=== PATIENT | female | born 1945 ===

== ENCOUNTER 2025-08-21 12:58 | Emergency (ER) | payer MEDICARE, SELFPAY ==
--- NOTE | ~2025-08-21 | XR_ITS ---
EXAMINATION: XR CHEST 2 VIEWS HISTORY: cough COMPARISON: There are no prior studies available for comparison. FINDINGS: AP and lateral views of the chest are submitted. The examination is limited by lordotic positioning. The lungs are grossly clear. There is no pleural effusion, pneumothorax, or pulmonary vascular congestion. The heart appears enlarged. There is degenerative disc disease of the spine. XR/XR chest 2V IMPRESSION: Cardiomegaly. The lungs are grossly clear. Electronically signed by: Sarath Haynes MD 08/22/2025 08:06 AM [place]
[2025-08-21 13:06] VITALS: BP 155/117; PULSE 84; O2SAT 97
--- NOTE | 2025-08-21 13:10 | ECG_ITS ---
Test Reason : CP Blood Pressure : */* mmHG Vent. Rate : 67 BPM Atrial Rate : 67 BPM P-R Int : 192 ms QRS Dur : 156 ms QT Int : 440 ms P-R-T Axes : 27 -14 18 degrees QTcB Int : 464 ms Sinus rhythm with marked sinus arrhythmia Right bundle branch block Minimal voltage criteria for LVH, may be normal variant ( R in aVL ) Abnormal ECG No previous ECGs available Referred By: Generic ED Physician Electronically Signed By: ROBY LAIRD MD
[2025-08-21 13:21] VITALS: BP 123/52; PULSE 70; RESP 18; TEMP 36.6; O2SAT 99; BMI 31.4
--- NOTE | 2025-08-21 13:50 | ED.GENADULT ---
HPI - General Adult General Chief complaint: General Medical Stated complaint: sob, Rt chest pain x days per ems Time Seen by Provider: 08/21/25 13:50 Source: patient and EMS Mode of arrival: EMS Limitations: no limitations History of Present Illness ED Provider: HPI narrative: 79-year-old woman reports history of? 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 Uses Dilaudid for pain, has a history of anemia sounds like also history of CHF and potentially not taking her furosemide, patient did not have her prescriptions with her. Related Data Previous Rx's ?Medication ?Instructions ?Recorded furosemide 40 mg tablet (Lasix) 40 mg PO DAILY 30 days #30 tabs 08/21/25 Allergies Allergy/AdvReac Type Severity Reaction Status Date / Time Penicillins (PCN) Allergy Unknown Verified 08/21/25 13:22 Review of Systems Constitutional: Constitutional: Reports as per HPI [facility] Social History Social History Advance Directives: No Advance Directives Information Provided: Yes Physical Exam ED Exam Exam: ?General: ??looks age appropriate ?PERRLA, EOMI, MMM, Neck: Supple, no LAD ?CV: RRR, no obvious murmurs appreciated ?Resp: ?No wheezing rales rhonchi no stridor moving air well Abd: ?Bowel sounds are present, no tenderness no rebound no rigidity MSK: Reports pain with range of motion of the bilateral hips states this is chronic, no lower extremity edema Skin: No bruising, no jaundice ?Neuro: ?Alert and oriented x3, moving upper and lower extremities symmetrically, no obvious facial asymmetry noted, cranial nerves 2-12 intact Vital Signs: Vital Signs - 24 hr 08/21/25 13:21 Temperature 97.9 F Pulse Rate 70 Respiratory Rate 18 Blood Pressure 123/52 L Pulse Oximetry 99 Oxygen Delivery Method Room Air BMI result Body Mass Index 31.4 Medical Decision Making Medical Decision Making MDM Narrative: 2:03 PM 08/21/2025 (Dr. Hans Lane): Presenting with dyspnea, palpitations, likely chest pain as well, going on sounds like sensate o'clock in the morning but has had respiratory symptoms for the past 3 days, no hypoxic tachycardic or PE risk factors elicited otherwise consideration for workup as below 2:41 PM 08/21/2025 (Dr. Hans Lane): I spoke with the patient's family, her son is at bedside with his partner, patient's BNP is elevated to 1600, chest x-ray still pending, viral swab negative, borderline elevation in troponin we will obtain a 2 hour repeat Differential Diagnosis Differential Diagnoses: The differential diagnosis associated with the presentation includes (CHF, COPD exacerbation, pneumonia, pneumothorax, ACS, PE,) Admission/Observation Consideration of admission/observation: Escalation of care including admission/observation considered Lab Data MDM Lab Attestation statement: I reviewed the patient's lab results. 08/21/25 13:52 08/21/25 13:51 Labs: Lab Results 08/21/25 08/21/25 08/21/25 Range/Units 13:47 13:51 13:52 WBC 5.9 (4.8-10.8) X10*3/uL RBC 3.06 L (4.20-5.50) X10*6/uL Hgb 9.2 L (12.0-16.0) g/dl Hct 28.6 L (37.0-47.0) % MCV 93.5 (80.0-98.0) fL MCH 30.1 (27.0-33.0) pg MCHC 32.2 (31.0-35.0) g/dl RDW 13.6 (11.0-16.0) % Plt Count 284 (160-400) X10*3/uL MPV 9.2 L (9.4-12.3) fL Immature Gran % (Auto) 0.7 H (0.0-0.4) % Neut % (Auto) 70.9 (45-73) % Lymph % (Auto) 14.5 L (20-40) % [place] % (Auto) 6.6 (2-11) % Eos % (Auto) 6.1 H (0-4) % Baso % (Auto) 1.2 (0-2) % Lymph # (Auto) 0.9 L (1.2-4.9) X10*3/uL [place] # (Auto) 0.4 (0.1-1.2) X10*3/uL Eos # (Auto) 0.4 (0.0-0.4) X10*3/uL Baso # (Auto) 0.1 (0.0-0.2) X10*3/uL Abs Immat Gran (auto) 0.04 H (0.00-0.03) X10*3/uL Absolute Neuts (auto) 4.2 (2.0-8.3) x10*3/uL Absolute Nucleated RBC 0.000 (0.0-0.012) X10*3/uL Nucleated RBC % (auto) 0.0 (0.0-0.2) /100WBC Sodium 139 (135-145) mmol/L Potassium 4.4 (3.3-5.1) mmol/L Chloride 108 (96-108) mmol/L Carbon Dioxide 24 (22-29) mmol/L Anion Gap 11 L (12-20) BUN 20 H (9-16) mg/dL Creatinine 1.05 (0.5-1.4) mg/dL Estim Creat Clear Calc 43.8 Estimated GFR 50 Random Glucose 129 H (60-115) mg/dL Calcium 10.0 (8.4-10.2) mg/dL Total Bilirubin 0.6 (0.0-1.0) mg/dL AST 17 (5-31) U/L ALT 6 (0-31) U/L Alkaline Phosphatase 208 H (39-117) U/L Troponin I High Sens 15.9 (<3.5-17.0) ng/L NT-Pro-B Natriuret Pep 1592.7 H (<300) pg/mL Total Protein 6.6 (6.5-8.0) g/dL Albumin 3.7 (3.5-5.0) g/dL Influenza Type A (PCR) NEGATIVE (Negative) Influenza Type B (PCR) NEGATIVE (Negative) RSV RNA Qual (PCR) NEGATIVE (Negative) SARS-CoV-2 RNA (RT-PCR) NEGATIVE (Negative) 08/21/25 Range/Units 16:01 WBC (4.8-10.8) X10*3/uL RBC (4.20-5.50) X10*6/uL Hgb (12.0-16.0) g/dl Hct (37.0-47.0) % MCV (80.0-98.0) fL MCH (27.0-33.0) pg MCHC (31.0-35.0) g/dl RDW (11.0-16.0) % Plt Count (160-400) X10*3/uL MPV (9.4-12.3) fL Immature Gran % (Auto) (0.0-0.4) % Neut % (Auto) (45-73) % Lymph % (Auto) (20-40) % [place] % (Auto) (2-11) % Eos % (Auto) (0-4) % Baso % (Auto) (0-2) % Lymph # (Auto) (1.2-4.9) X10*3/uL [place] # (Auto) (0.1-1.2) X10*3/uL Eos # (Auto) (0.0-0.4) X10*3/uL Baso # (Auto) (0.0-0.2) X10*3/uL Abs Immat Gran (auto) (0.00-0.03) X10*3/uL Absolute Neuts (auto) (2.0-8.3) x10*3/uL Absolute Nucleated RBC (0.0-0.012) X10*3/uL Nucleated RBC % (auto) (0.0-0.2) /100WBC Sodium (135-145) mmol/L Potassium (3.3-5.1) mmol/L Chloride (96-108) mmol/L Carbon Dioxide (22-29) mmol/L Anion Gap (12-20) BUN (9-16) mg/dL Creatinine (0.5-1.4) mg/dL Estim Creat Clear Calc Estimated GFR Random Glucose (60-115) mg/dL Calcium (8.4-10.2) mg/dL Total Bilirubin (0.0-1.0) mg/dL AST (5-31) U/L ALT (0-31) U/L Alkaline Phosphatase (39-117) U/L Troponin I High Sens 18.1 H (<3.5-17.0) ng/L NT-Pro-B Natriuret Pep (<300) pg/mL Total Protein (6.5-8.0) g/dL Albumin (3.5-5.0) g/dL Influenza Type A (PCR) (Negative) Influenza Type B (PCR) (Negative) RSV RNA Qual (PCR) (Negative) SARS-CoV-2 RNA (RT-PCR) (Negative) Independent Interpretation I performed an independent interpretation of an: EKG (67 beats per minute, no QTC prolongation, does have right bundle-branch block pathology, no prior to compare, T-wave inversions in V1 V2 as well as V4 V5 likely from the bundle-branch, ST segment not elevated) Discharge Plan Discharge Clinical Impression: CHF exacerbation, Dyspnea Additional Instructions: Workup has been consistent with degree of heart failure, I recommend starting furosemide 40 mg daily, this is a diuretic, you can take it during the day because if you take it before bedtime you will be running to the bathroom quite a bit I recommend starting with 40 mg a day for the next 5 days and then 40 mg every other day It is very important that she is re-evaluated by her PCP The rest of her workup has been reassuring Prescriptions: New furosemide [Lasix] 40 mg tablet 40 mg PO DAILY 30 Days Qty: 30 0RF Print Language: Pashto
[2025-08-21 13:58] LABS: MANUAL DIFF FLAG NO
[2025-08-21 14:02] LABS: Hematocrit 28.6 % (37.0-47.0); Hemoglobin 9.2 g/dl (12.0-16.0); Imm Gran Abs Auto 0.04 X10*3/uL (0.00-0.03); Imm Gran Pct Auto 0.7 % (0.0-0.4); Lymphocytes Absolute Auto 0.9 X10*3/uL (1.2-4.9); Mean Corpuscular HGB Conc 32.2 g/dl (31.0-35.0); Mean Corpuscular Hemoglobin 30.1 pg (27.0-33.0); Mean Corpuscular Volume 93.5 fL (80.0-98.0); NRBC Abs Auto 0.000 X10*3/uL (0.0-0.012); NRBC Pct Auto 0.0 /100WBC (0.0-0.2); Platelet Count 284 X10*3/uL (160-400); Red Blood Count 3.06 X10*6/uL (4.20-5.50); White Blood Count 5.9 X10*3/uL (4.8-10.8)
[2025-08-21 14:16] LABS: Alanine Aminotransferase 6 U/L (0-31); Albumin Level 3.7 g/dL (3.5-5.0); Alkaline Phosphatase 208 U/L (39-117); Anion Gap 11 (12-20); Aspartate Amino Transferase 17 U/L (5-31); Blood Urea Nitrogen 20 mg/dL (9-16); Calcium 10.0 mg/dL (8.4-10.2); Carbon Dioxide 24 mmol/L (22-29); Chloride 108 mmol/L (96-108); Creatinine Clr Calc Pharmacy 43.8; Estimated Glomerular Filt Rate 50; Potassium 4.4 mmol/L (3.3-5.1); Sodium 139 mmol/L (135-145); Total Protein 6.6 g/dL (6.5-8.0)
[2025-08-21 14:26] LABS: Troponin-I High Sensitivity 15.9 ng/L (<3.5-17.0)
[2025-08-21 14:36] LABS: Resp Syncy Virus RNA Qual PCR NEGATIVE (Negative); SARS COV2 PCR INHOUSE NEGATIVE (Negative)
--- OUTSIDE RECORDS SUMMARY | 2025-08-21 15:21 | XMS_ITS | Encounter Summary ---
Author Organization [facility] Address [address] [place] [address] Phone Care Team Providers Care Azure Architect Name Role Phone Jess Richter BRENNA Primary Care Provider Riri Lucas PA-C Unavailable Encounter Details Date Type Department Care Team (Late st Contact Info) Description 01/08/2023 Ancillary Orders [address] [address] Ermelinda Rinaldi MD [address] [place] [address] Orthopedics & Sports Medicine, [place], [place] [phone] [email or web address] Hip pain, chronic, left Social History Tobacco Use Types Packs/Day Years Used Date Smoking Tobacco: Every Day Cigarettes 1 51 Started: 1976 Smokeless Tobacco: Never Alcohol Use Standard Drinks/Week Comments Not Currently 0 (1 standard drink = 0.6 oz pur e alcohol) Education Answer Date Recorded Are you interested in more education? Not on rick e 12/24/2022 Are you concerned about learning? Not on file 12/24/2022 No 12/24/2022 No 12/24/2022 Comments Unknown Sex and Gender Information Value Date Recorded Sex Assigned at Female 07/18/2024 2:23 PM EST Legal Sex Female 2:39 PM EDT Gender Identity Female 07/18/2024 2:23 PM EST Sexual Orientation Straight 07/18/2024 2: 23 PM EST documented as of this encounter Plan of Treatment Pending Results Name Type Priority Associated Diagnoses Date /Time FL Guidance Needle Placement Non-Spine Imaging Routine Hip pain, chronic, left 01/12/2023 10:08 AM EDT Scheduled Orders Name Type Priority Associated Diagnoses Orde r Schedule FL Guidance Needle Placement Non-Spine Imaging Routine Hip pain, chronic, left 1 Occurrences starting 01/08/2023 until 04/10/2023 documented as of this encounter Visit Diagnoses Diagnosis Hip pain, chronic, left documented in this encounter Care Teams Azure Architect Relationship Specialty Start Date End Date Jess Richter CNP 14 [facility] [address] [place] [id number] PCP - General Internal Medicine 04/24/20 Riri Lucas PA-C [address] [place] [phone] [email or web address] Physician Radial Drill Press Operator 10/17/24 documented as of this encounter Additional Source Comments The information contained in this document represents components of the legal health record. It is not the complete legal health record.[facility]
--- OUTSIDE RECORDS SUMMARY | 2025-08-21 15:21 | XMS_ITS | Encounter Summary ---
Author Organization [facility] Address [address] [place] [address] [place] [address] Phone Care Team Providers Care Hydroelectric Plant Structural Engineer Name Role Phone Jess Richter BRENNA Primary Care Provider Riri Lucas PA-C Unavailable [phone] Encounter Details Date Type Department Care Team (Late st Contact Info) Description 01/04/2023 Ancillary Orders [facility] [address] [place] [address] Ermelinda Rinaldi MD [address] [place] [address] Orthopedics & Sports Medicine, [place], [place] [phone] [email or web address] Social History Tobacco Use Types Packs/Day Years [...] as of this encounter Plan of Treatment Not on file documented as of this encounter Visit Diagnoses Not on filedocumented in this encounter Care Teams Hydroelectric Plant Structural Engineer Relationship Specialty Start Date End Date Jess Richter CNP [address] [place] [address] [address] [place] [address] PCP - General Internal Medicine 04/24/20 Riri Lucas PA-C [address] [place] [address] Physician Vocal Teacher 10/17/24 documented as of this encounter Additional Source Comments The information contained in this document represents components of the legal health record. It is not the complete legal health record.[facility]
--- OUTSIDE RECORDS SUMMARY | 2025-08-21 15:21 | XMS_ITS | Encounter Summary ---
Author Organization [facility] Address [address] [place] [address] [place] [address] Phone Care Team Providers Care Booking Officer Name Role Phone Jess Richter BRENNA Primary Care Provider Riri Lucas PA-C Unavailable [phone] Encounter Details Date Type Department Care Team (Late st Contact Info) Description 01/08/[address] [facility] [address] [place] [address] Ermelinda Rinaldi MD [address] [place] [address] Orthopedics & Sports Medicine, [place], [place] [phone] [email or web address] Social History Tobacco Use Types Packs/Day Years [...] on filedocumented in this encounter Care Teams Booking Officer Relationship Specialty Start Date End Date Jess Richter CNP [address] [place] [address] [address] [place] [address] PCP - General Internal Medicine 04/24/20 Riri Lucas PA-C [address] [place] [address] Physician Food Products Sales Representative 10/17/24 documented as of this encounter Additional Source Comments The information contained in this document represents components of the legal health record. It is not the complete legal health record.[facility]
--- OUTSIDE RECORDS SUMMARY | 2025-08-21 15:22 | XMS_ITS | Encounter Summary ---
Author Organization [facility] Address [address] [place] [address] Phone Care Team Providers Care Belt Dresser Name Role Phone Jess Richter BRENNA Primary Care Provider Riri Lucas PA-C Unavailable [phone] Reason for Referral * Consultation (Within 2 weeks) - Closed Specialty Diagnoses / Procedures Referred By Desean de los santos Referred To Contact Riri Lucas PA-C [address] [place] [address] Phone: tel: fax: [email or web address] [address] [address] Phone: tel: Referral ID Status Reason Start Date Expiration Date Visits Re quested Visits Authorized [id number] Closed 07/17/2025 07/17/2026 1 1 Encounter Details Date Type Department Care Team (Late st Contact Info) Description 07/17/[address] [facility] [place] [facility] [address] [place] [address] Riri Lucas PA-C [address] [place] [address] Low vitamin B12 level (Primary Dx); Anemia, unspecified type Social History Tobacco Use Types Packs/Day Years Used Date Smoking Tobacco: Former Cigarettes 1 51 S tarted: 1977 Smokeless Tobacco: Never Alcohol Use Standard Drinks/Week Comments Not Currently 0 (1 standard drink = 0.6 oz pur e alcohol) Home Health Assessment: Transportation Answer Date Recorded Lack of Transportation (Medical) No 09/07/2024 Lack of Transportation (Non-Medical) No 09/07/2024 Patient Unable or Declines to Respond No 09/07/2024 Education Answer Date Recorded Are you interested in more education? Not on rick e 12/24/2022 Are you concerned about learning? Not on file 12/24/2022 No 12/24/2022 No 12/24/2022 Digital Access Answer Date Recorded No 01/19/2023 No 01/19/2023 Reliable internet access at home? Not on file 01/19/2023 Device with a working camera? Not on file Intimate Partner Violence Answer Date R ecorded Denied Basic Needs Not on file 08/17/2023 In the past 12 months have y ou been in a relationship with a person who hurts, threatens, or tries to control you? No 08/17/2023 Worried food would run out Not on file 08/17 In the past 12 months have y ou been in a relationship with a person who hurts, threatens, or tries to control you? No 08/17/2023 Comments Unknown Sex and Gender Information Value Date Recorded Sex Assigned at Female 07/18/2024 2:23 PM EST Legal Sex Female 2:39 PM EDT Gender Identity Female 07/18/2024 2:23 PM EST Sexual Orientation Straight 07/18/2024 2: 23 PM EST documented as of this encounter Plan of Treatment Scheduled Orders Name Type Priority Associated Diagnoses Orde r Schedule CBC and Differential Lab Routine Low vitamin B12 level Anemia, unspecified type Monthly for 4 Occurrences starting 07/17/2025 until 07/17/2026 Iron and Total Iron Binding Capacity (Iron/TIBC) Lab Routine Low vitamin B12 level Anemia, unspecified type Monthly for 4 Occurrences starting 07/17/2025 until 07/17/2026 Ferritin Lab Routine Low vitamin B12 level Anemia, unspecified type Monthly for 4 Occurrences starting 07/17/2025 until 07/17/2026 Vitamin B12 Lab Routine Low vitamin B12 level Expected: 10/17/2025 (Approximate), Expires: 01/15/2026 Scheduled Referrals Name Type Priority Associated Diagnoses Order Schedule Ambulatory referral to [facility] Outpatient Outpatient Referral Routine Ordered: 07/17/2025 documented as of this encounter Visit Diagnoses Diagnosis Low vitamin B12 level- Primary Anemia, unspecified type documented in this encounter Additional Health Concerns Assessment Noted Time PHQ-9 Depression Total Score: 4 12/14/19 24 11:34 AM EDT PHQ-2 Depression Total Score: 0 12/14/19 24 11:34 AM EDT documented as of this encounter Care Teams Belt Dresser Relationship Specialty Start Date End Date Jess Richter CNP [address] [place] [address] [place] [address] PCP - General Internal Medicine 04/24/20 Riri Lucas PA-C [address] [place] [phone] [email or web address] Physician Commercial Loan Analyst 10/17/24 documented as of this encounter Additional Source Comments The information contained in this document represents components of the legal health record. It is not the complete legal health record.[facility]
--- OUTSIDE RECORDS SUMMARY | 2025-08-21 15:22 | XMS_ITS | Encounter Summary ---
Author Organization [facility] Address [address] [place] [address] [place] [address] Phone Care Team Providers Care Impregnator And Drier Name Role Phone Jess Richter BRENNA Primary Care Provider Riri Lucas PA-C Unavailable [phone] Encounter Details Date Type Department Care Team (Late st Contact Info) Description 08/02/2024 Procedure Pass OR Admitting Dept - Virtual Department [address] [place] [address] Social History Tobacco Use Types Packs/Day Years Used Date Smoking Tobacco: Former Cigarettes 1 51 S tarted: 1977 Smokeless Tobacco: Never Alcohol Use Standard Drinks/Week Comments Not Currently 0 (1 standard drink = 0.6 oz pur e alcohol) Home Health Assessment: Transportation Answer Date Recorded Lack of Transportation (Medical) No 07/13/2024 Lack of Transportation (Non-Medical) No 07/13/2024 Patient Unable or Declines to Respond No 07/13/2024 Education Answer Date Recorded Are you interested [...] Diagnoses Not on filedocumented in this encounter Additional Health Concerns Assessment Noted Time PHQ-9 Depression Total Score: 4 12/14/19 24 11:34 AM EDT PHQ-2 Depression Total Score: 0 12/14/19 24 11:34 AM EDT documented as of this encounter Care Teams Impregnator And Drier Relationship Specialty Start Date End Date Jess Richter CNP [address] [place] [address] [address] [place] [address] PCP - General Internal Medicine 04/24/20 Riri Lucas PA-C [address] [place] [address] Physician Media Marketing Director 10/17/24 documented as of this encounter Additional Source Comments The information contained in this document represents components of the legal health record. It is not the complete legal health record.[facility]
--- OUTSIDE RECORDS SUMMARY | 2025-08-21 15:22 | XMS_ITS | Encounter Summary ---
Author Organization [facility] Address [address] [place] [address] [place] [address] Phone Care Team Providers Care Shrimp Trawler Captain Name Role Phone Jess Richter BRENNA Primary Care Provider Riri Lucas PA-C Unavailable [phone] Encounter Details Date Type Department Care Team (Late st Contact Info) Description 06/03/2023 Ancillary Orders [facility] [address] [place] [address] Ermelinda Rinaldi MD [address] [place] [address] Orthopedics & Sports Medicine, [place], [place] [phone] [email or web address] Social History Tobacco Use Types Packs/Day Years [...] with a working camera? Not on file Comments Unknown Sex and Gender Information Value [...] on filedocumented in this encounter Care Teams Shrimp Trawler Captain Relationship Specialty Start Date End Date Jess Richter CNP [address] [place] [address] [email or web address] PCP - General Internal Medicine 04/24/20 Riri Lucas PA-C [address] [place] [address] Physician Profile Grinder Technician 10/17/24 documented as of this encounter Additional Source Comments The information contained in this document represents components of the legal health record. It is not the complete legal health record.[facility]
--- OUTSIDE RECORDS SUMMARY | 2025-08-21 15:22 | XMS_ITS | Encounter Summary ---
Author Organization [facility] Address [address] [place] [address] Phone Care Team Providers Care Director Of Photography Name Role Phone Jess Richter BRENNA Primary Care Provider Riri Lucas PA-C Unavailable [phone] Encounter Details Date Type Department Care Team (Late st Contact Info) Description 06/03/2023 Ancillary Orders [address] [address] Ermelinda Rinaldi MD [address] [place] [address] Orthopedics & Sports Medicine, [place], [place] [phone] [email or web address] Hip pain, chronic, right Social History Tobacco Use Types Packs/Day Years [...] encounter Visit Diagnoses Diagnosis Hip pain, chronic, right documented in this encounter Care Teams Director Of Photography Relationship Specialty Start Date End Date Jess Richter CNP [address] [place] [address] [address] [place] [address] PCP - General Internal Medicine 04/24/20 Riri Lucas PA-C [address] [place] [address] Physician Ocean Lifeguard 10/17/24 documented as of this encounter Additional Source Comments The information contained in this document represents components of the legal health record. It is not the complete legal health record.[facility]
--- OUTSIDE RECORDS SUMMARY | 2025-08-21 15:22 | XMS_ITS | Clinical Summary ---
Author Organization [facility] Address [address] [place] [id number] Phone Care Team Providers Care Mounter Hand Name Role Phone Jess Richter BRENNA Primary Care Provider Riri Lucas PA-C Unavailable [phone] Allergies Active Allergy Reactions Criticality Noted Date Comments Cefuroxime Axetil 05/28/2020 Morphine Shortness Of Breath High 09/08/2024 Nsaids (Non-Steroidal Anti-Inflammatory Drug) 05/28/2020 Penicillins 05/28/2020 Medications blood-glucose meter kitIndications:T ype 2 diabetes mellitus with hyperglycemia, without long-term current use of insulin Use as instructed 1 each 020 Active LORazepam (ATIVAN) 0.5 MG tabletIndication s:Anxiety state [The details of the medication are not available because there are pending changes by a home health clinician.] 15 tablet 023 Active Additional Information Patient not taking.Reported on 07/22/2024 ipratropium-albu teroL (COMBIVENT RESPIMAT) 20-100 mcg/actuation MistIndications: Chronic obstructive pulmonary disease, unspecified COPD type [The details of the medication are not available because there are pending changes by a home health clinician.] 12 g 1 023 Active Additional Information Patient taking differently:1 puff Inhalation Every 4 hours PRN,sob/wheezing, 07/21-has not needed, Reported on 07/21/2024 fluticasone-umec lidin-vilanter (TRELEGY ELLIPTA) 200-62.5-25 mcg inhalerIndicatio ns:Chronic obstructive pulmonary disease, unspecified COPD type Inhale 1 puff into the lungs daily. 180 each 023 Active cholecalciferol (VITAMIN D3) 5,000 unit capsuleIndicatio ns:Vitamin D deficiency Take 1 capsule (5,000 Units total) by mouth daily. 90 capsule 2 024 Active Additional Information Patient not taking.Reported on 07/14/2024 furosemide (LASIX) 40 MG tabletIndication s:Bilateral leg edema [The details of the medication are not available because there are pending changes by a home health clinician.] 3 tablet 024 Active Additional Information Patient not taking.Reported on 08/01/2024 omeprazole (PRILOSEC) 40 MG capsule Take 40 mg by mouth daily. 024 Active senna 8.6 mg tablet Take 1 tablet by mouth daily. 024 Active magnesium hydroxide 400 mg/5 mL Susp Take 30 mL by mouth daily as needed (constipation). 025 Active gabapentin (NEURONTIN) 100 MG capsuleIndicatio ns:Primary localized osteoarthritis of hip,Other closed fracture of right ischium with routine healing, subsequent encounter Take 1-2 capsules (100-200 mg total) by mouth 3 (three) times a day for 10 days. 60 capsule 025 Active atorvastatin (LIPITOR) 80 MG tabletIndication s:Mixed hyperlipidemia TAKE 1 TABLET BY MOUTH EVERY DAY 90 tablet 2 025 Active metFORMIN (GLUCOPHAGE-XR) 500 MG 24 hr tabletIndication s:Type 2 diabetes mellitus with hyperglycemia, without long-term current use of insulin TAKE 2 TABLETS BY MOUTH DAILY WITH DINNER 180 tablet 2 Active venlafaxine (EFFEXOR-XR) 150 MG 24 hr capsuleIndicatio ns:Current moderate episode of major depressive disorder without prior episode Take 1 capsule (150 mg total) by mouth daily. 90 capsule 3 025 Active cyanocobalamin, vitamin B-12, 1000 MCG tablet TAKE 1 TABLET BY MOUTH EVERY DAY 90 tablet 1 025 Active cyanocobalamin (VITAMIN B-12) 1,000 mcg/mL injection Inject 1 mL (1,000 mcg total) into the muscle every 30 (thirty) days. 3 mL 025 2025 Active syringe with needle 1 mL 25 gauge x 5/8 Syrg Use to inject b12 into the skin as instructed 6 each 2 Active predniSONE (DELTASONE) 1 MG tabletIndication s:History of polymyalgia rheumatica TAKE 2 TABLETS BY MOUTH DAILY WITH BREAKFAST 60 tablet 2 025 Active levothyroxine (SYNTHROID, LEVOTHROID) 125 MCG tabletIndication s:Hypothyroidism TAKE 1 TABLET BY MOUTH EVERY DAY IN THE MORNING 90 tablet 3 025 Active HYDROmorphone (DILAUDID) 8 MG tabletIndication s:Chronic pain syndrome,Primary localized osteoarthritis of hip Take 1 tablet (8 mg total) by mouth every 4 (four) hours as needed for pain (specific location in comments). pain to pelvic/hip/knees 168 tablet 025 2025 Active cyanocobalamin (VITAMIN B-12) 1,000 mcg/mL injection INJECT 1 ML SUBCUTANEOUSLY ONCE A WEEK FOR 3 WEEKS THEN CONTINUE ONCE A MONTH 18 mL 1 025 Active levothyroxine (SYNTHROID, LEVOTHROID) 125 MCG tabletIndication s:Hypothyroidism TAKE 1 TABLET BY MOUTH EVERY DAY IN THE MORNING 90 tablet 1 025 2024 Discontinued predniSONE (DELTASONE) 1 MG tabletIndication s:History of polymyalgia rheumatica TAKE 2 TABLETS (2 MG TOTAL) BY MOUTH DAILY WITH BREAKFAST 60 tablet 2 025 2024 Discontinued HYDROmorphone (DILAUDID) 8 MG tabletIndication s:Chronic pain syndrome,Primary localized osteoarthritis of hip Take 1 tablet (8 mg total) by mouth every 4 (four) hours as needed for pain (specific location in comments). pain to pelvic/hip/knees 168 tablet 025 2024 Discontinued(R eomansier) cyanocobalamin (VITAMIN B-12) 1,000 mcg/mL injection Inject under the skin as instructed weekly x3, then continue monthly 6 mL 1 025 2024 Discontinued Active Problems Problem Noted Date Diagnosed Date Low vitamin B12 level 07/17/2025 Chronic pain syndrome 10/04/2024 Assessment & Plan (10/04/2024 7:04 PM EST): Patient struggling with some pretty significant chronic pain, particularly related to bilateral hips, with right being worse than the left. She had been very helpful of an upcoming total hip replacement, but this is on hold until her anemia is appropriately worked up and improved. Continue Dilaudid, gabapentin. Will add on Effexor XR, which can have some benefit on chronic pain. Patient in agreement with plan. History of polymyalgia rheumatica 10/04/2024 Assessment & Plan (10/04/2024 7:04 PM EST): Continue prednisone 2 mg daily. Iron deficiency anemia 10/04/2024 Assessment & Plan (11/07/2024 11:27 AM EDT): Patient struggling with an iron deficiency anemia, for which she has a follow-up appointment with hematology at the end of next month. She was recommended to start iron supplements, although it does not sound that she has done this. Will call in prescription for ferrous sulfate 325 mg 3 times weekly. Will update patient's blood work, may consider referral for iron infusion based on results. Patient in agreement with plan. Assessment & Plan (10/04/2024 7:06 PM EST): Patient has a history of mild anemia, which worsened after her pelvic fracture in May. It was trending up, but has since dropped with an H&H of 7.7/26.7. Patient was encouraged to start iron supplements, but she does not believe that she has yet started this and will discuss with her daughter. Patient encouraged to reach out to hematology to set up an appointment and complete FIT testing as recommended. Patient verbalizes understanding. Closed fracture of right ischium with routine he aling 07/14/2024 Assessment & Plan (07/22/2024 7:30 AM EST): Patient continues to struggle with high levels of pain involving her chronic right hip arthritis and right ischium fracture. This is compounded by difficulty getting her prescription due to national shortages of hydromorphone. Reassured patient that we found a supply at [facility] and she can have a family member picker tender helper her prescription later today. Recommended that she supplement her hydromorphone with acetaminophen 1000 mg three times daily. Would recommend avoiding NSAIDs due to her prednisone use and risk of GI bleeding. Advised her to call next week to let us know how she is doing, could consider adding TCA at bedtime or neuromodulator for better pain control. Patient verbalizes understanding and in agreement with plan. Assessment & Plan (07/14/2024 6:37 PM EST): Patient doing fairly well, working with home PT. Patient is having fairly high levels of pain. Will refill hydromorphone but approve one additional pill per day, so she can take it closer to every 3 hours. F/u in 1 week for reevaluation. Patient verbalizes understanding and in agreement with plan. Other constipation 07/14/2024 Assessment & Plan (07/14/2024 6:38 PM EST): Likely combination of inactivity and pain medication. Recommended starting Colace twice daily; if not improved, add in Senna twice daily as well. Milk of magnesia every 3rd day if no BM. F/u as needed. Primary localized osteoarthritis of hip 03/31/20 Assessment & Plan (11/07/2024 11:28 AM EDT): Patient is quite disappointed that her hip surgery was delayed due to initially a pelvic fracture and then her anemia. Patient is struggling with pretty significant hip pain; she does find hydromorphone to be helpful but is not lasting the full 6 hours. Will increase frequency of hydromorphone to every 4 hours and follow-up in 1 month for reevaluation. Patient in agreement with plan. Assessment & Plan (07/14/2024 6:35 PM EST): Patient is planning on having right total hip replacement next month, but this was cancelled by her orthopedic office likely due to her recent pelvic fracture. Patient is very eager to get this surgery done; will reach out to Dr. Weston's office to discuss timing of scheduling the surgery. Encounter for annual wellness exam in Medicare p atient 08/17/2023 Assessment & Plan (08/17/2023 12:30 PM EST): Generally well elderly female, with chronic conditions as discussed below. We discussed screening recommendations, such as colonoscopy due to family history of colon cancer; patient verbalizes understanding of risk and benefits, but declines any further colonoscopies. She also declines bone density testing, mammograms, and most immunizations. Influenza vaccine given in office today. Recommend healthy eating and regular exercise as tolerated. Current moderate episode of major depressive disorder without prior episode 08/17/2023 Assessment & Plan (12/12/2024 10:43 AM EDT): Patient is noticing some improvement in her depressive symptoms with venlafaxine 75 mg daily. She denies any side effects. She would be open to increasing the dosage of medication, will increase to 150 mg daily. F/u in 2-3 months for reevaluation. Patient verbalizes understanding and in agreement with plan. Assessment & Plan (11/07/2024 11:29 AM EDT): Patient struggling with some pretty significant situational stressors, including concerns over her children and her own health issues. No significant benefit noted from venlafaxine, although no side effects reported. Will increase to 75 mg daily and follow-up in 1 month for reevaluation. Assessment & Plan (10/04/2024 7:03 PM EST): Patient struggling with depression, likely multifactorial but at least in part due to chronic pain and the disappointment of not being able to have her total hip replaced as she is hoped. She is taking sertraline 50 mg daily but does not find this to be helpful for her mood. We discussed treatment options and it may be beneficial to try an SNRI, which can help with mood and have some effect on pain. Will start Effexor XR 37.5 mg daily. Patient instructed on medication use, potential side effects and adverse effects. Advised patient to take Effexor and sertraline daily x 2 weeks, then discontinue the sertraline to avoid SSRI withdrawal symptoms. Will plan to follow-up in 3 weeks for reevaluation. Patient in agreement with plan. Assessment & Plan (07/14/2024 6:36 PM EST): Encouraged patient to continue sertraline 50 mg daily for depression, particularly with recent set back of hip surgery being cancelled. Assessment & Plan (08/17/2023 12:31 PM EST): Stable, on Zoloft 50 mg daily. Continue current therapies and follow-up in 6 months for routine monitoring History of tobacco abuse 08/17/2023 Assessment & Plan (12/14/2023 1:10 PM EDT): We discussed treatment options for tobacco abuse, medications to assist with tobacco cessation. Will start Chantix, patient instructed on black box warning and red flags that would prompt immediate discontinuation of the medication. Patient reports that she will be monitored closely by her daughter for any adverse reactions. We also discussed potential side effects. Follow-up in 1-2 weeks for reevaluation. Assessment & Plan (08/17/2023 12:31 PM EST): Long tobacco use history, 5 minutes of this 60 minute appointment was spent discussing smoking cessation. Patient reports low motivation at this time. Patient declines smoking cessation resources at this time. Patient is due for LDCT, order placed. Primary osteoarthritis of both hips 11/09/2022 Patellofemoral arthralgia of both knees 06/01/20 22 Bilateral primary osteoarthritis of knee 022 Assessment & Plan (03/24/2022 8:54 PM EDT): Chronic bilateral knee pain, with right being worse than the left, related to osteoarthritis. Patient would like referral to orthopedic surgeon to discuss surgical intervention, referral placed to Dr. Tacos Fournier at [facility]. In the meantime, will increase tramadol to 1-2 tablets twice daily to help with some of her daytime pain as well as the nighttime pain. No evidence of abuse or diversion. We will follow-up in 6 weeks, or sooner as needed. Primary osteoarthritis of right knee 11/18/2021 Overview (11/18/2021): Hx OA right knee Only minimal relief from injections of both corticosteroid and Synvisc Will need ortho referral at some point Repeated injection to R knee today due to significant symptoms See procedure note Assessment & Plan (11/18/2021 6:41 AM EDT): Hx OA right knee Only minimal relief from injections of both corticosteroid and Synvisc Will need ortho referral at some point Repeated injection to R knee today due to significant symptoms See procedure note Hiatal hernia with GERD 09/10/2021 Assessment & Plan (07/14/2024 6:35 PM EST): Stable, off therapies. Follow-up as needed. Assessment & Plan (08/17/2023 12:29 PM EST): Stable, off therapies. Follow-up as needed. Vitamin D deficiency 07/30/2020 Assessment & Plan (12/13/2020 12:44 PM EDT): We will check vitamin D level with upcoming blood work. Assessment & Plan (07/30/2020 7:28 PM EST): Recent blood work showing a significant vitamin D deficiency. Will start patient on cholecalciferol 5000 IU daily and repeat vitamin D test in 3 months prior to next appointment. Patient in agreement with plan. Essential hypertension 05/28/2020 Assessment & Plan (07/14/2024 6:32 PM EST): As above. Hold amlodipine and lisinopril until blood pressures are consistently >120 systolic. F/u closely. Assessment & Plan (08/17/2023 12:24 PM EST): Stable on current therapies with normotensive blood pressure reading in office today. Continue current regimen of lisinopril and amlodipine. Assessment & Plan (12/13/2020 12:43 PM EDT): Stable on current therapies with normotensive blood pressure reading in office today. Continue current regimen. Assessment & Plan (05/28/2020 7:40 PM EDT): Stable on current therapies with normotensive blood pressure reading in office today. We will follow-up in 2 months with blood work prior to next appointment. Hypothyroidism 05/28/2020 Assessment & Plan (07/14/2024 6:33 PM EST): Stable, continue current regimen. Repeat TSH in 3 months. Assessment & Plan (08/17/2023 12:26 PM EST): Stable, although patient is overdue for thyroid testing. Will follow-up by phone once lab results are back. For now, continue levothyroxine at current dosage. Assessment & Plan (05/28/2020 7:41 PM EDT): Stable, per patient report. Will check TSH prior to next appointment. Type 2 diabetes mellitus wit hout complication, without long-term current use of insulin 05/28/2020 Assessment & Plan (07/14/2024 6:33 PM EST): A1c at 5.9% on recent blood work. Continue current regimen and repeat A1c in 3 months. Assessment & Plan (12/14/2023 1:08 PM EDT): Patient overdue for A1c, most recent A1c at 7.9% but metformin has been increased since that time. Repeat A1c and follow-up by phone once results are back. Assessment & Plan (08/17/2023 12:27 PM EST): Stable, although patient overdue for A1c. Continue metformin and will send prescription for freestyle effie continuous glucose monitor. Assessment & Plan (12/13/2020 12:44 PM EDT): Will have patient do hemoglobin A1c at outpatient lab; will call with results once available and adjust regimen as needed. Continue to monitor blood sugars at home. Assessment & Plan (07/30/2020 7:24 PM EST): Uncontrolled type 2 diabetes, with recent hemoglobin A1c at 10.2%. Will increase Metformin XR to 1000 mg daily, although patient would primarily like to try to improve her diabetes with diet. Discussed low carb/limited sweets diet. We will plan to also start testing BGL's once daily for better management and understanding of blood sugars. We will follow-up in 3 months with hemoglobin A1c prior, or sooner as needed. Assessment & Plan (05/28/2020 7:42 PM EDT): Most recent hemoglobin A1c slightly elevated at 8%. Will recheck A1c prior to next appointment and adjust dosing as needed. Mixed hyperlipidemia 05/28/2020 Assessment & Plan (08/17/2023 12:26 PM EST): Stable, will include lipid panel with upcoming blood work. Assessment & Plan (05/28/2020 7:41 PM EDT): Stable, per patient report. We will plan on doing an annual wellness exam in 6 months and check fasting lipid prior PMR (polymyalgia rheumatica) 05/28/2020 Assessment & Plan (07/14/2024 6:35 PM EST): Patient has continued on prednisone 2 mg daily, but has not had f/u visit with her rheumatology office in over a year. Recommend setting up routine follow up, but continue prednisone for now. No red flags for GCA. Assessment & Plan (08/17/2023 12:27 PM EST): Patient has continued on prednisone 2 mg daily, but has not had f/u visit with her rheumatology office in over a year. Recommend setting up routine follow up, but continue prednisone for now. No red flags for GCA. Assessment & Plan (11/18/2021 6:39 AM EDT): Hx of PMR dx'd in 2019 Tapered off prednisone in 2020 Recurrent symptoms of pain /stiffness in bilateral shoulders/UEs Check labs today Restart pred 5 mg daily-> pt to call with update at end of the week Assessment & Plan (12/13/2020 12:45 PM EDT): Continue slow prednisone wean, as instructed by rheumatology. Assessment & Plan (07/30/2020 7:22 PM EST): Continue slow prednisone wean, as instructed by rheumatology. Assessment & Plan (05/28/2020 7:42 PM EDT): On prednisone 7 mg daily. Will do referral to [facility] for further evaluation and management of PMR. Primary osteoarthritis involving multiple joints 05/28/2020 Assessment & Plan (12/14/2023 1:07 PM EDT): Patient with progressively worsening pain and disability related to end-stage right hip arthritis. She has been prevented from having a right total hip replacement due to her tobacco use. We discussed plan for tobacco cessation (see below), but also discussed pain management. Will stop Percocet and start hydromorphone 2-4 mg up to 3 times per day. Advised her to use Tylenol for pain and only use hydromorphone for breakthrough pain. Regular use of opiates prior to surgery can make postoperative pain more difficult; it is unlikely that she will be able to have full relief of pain until surgical intervention. Patient advised to reach out to [facility] to discuss right total hip replacement. Patient verbalizes understanding and in agreement with plan. Assessment & Plan (08/17/2023 12:29 PM EST): Chronic arthritis of multiple joints, although her right knee and hip is most problematic. Patient is not a candidate for total hip replacement due to her ongoing tobacco use; she has no motivation to quit smoking at this time. She has been taking tramadol, but does not find it to be beneficial and is requesting stronger pain medication. We will do low-dose Percocet 5-325 mg, up to 3 tablets/day. Patient instructed on medication use, potential side effects and adverse effects. Follow-up in 3 months, or sooner as needed. Assessment & Plan (12/13/2020 12:46 PM EDT): Chronic arthritis of multiple joints, although her right knee is most problematic. Continue Tramadol at bedtime for sleep; no evidence of abuse or diversion. Continue follow up with Dr. Randhawa of rheumatology. I did encourage her to try Cymbalta again for pain, which could also be beneficial for mood and sleep. Pt verbalizes understanding and in agreement with plan. Assessment & Plan (07/30/2020 7:22 PM EST): Chronic arthritis of multiple joints, although her right knee seems to be most problematic recently. No improvement with recent cortisone injection, so plan for Synvisc injection series scheduled with Dr. Randhawa of rheumatology. Will provide patient a longer prescription of tramadol, only to be taken at nighttime to help with sleep. Patient instructed on medication use, side effects, and adverse effects. We will plan to wean off of this once Synvisc injection series is completed. Patient in agreement with plan. Assessment & Plan (05/28/2020 7:43 PM EDT): History of osteoarthritis, with current primary complaint being right knee pain. Tylenol has not been helpful, but she has not been able to tolerate NSAIDs in the past due to chronic kidney disease. Did review most recent renal panel and will do trial of meloxicam 7.5 mg once daily. Will repeat blood work in 2 months and if renal function worsening will discontinue meloxicam at that point. Patient may benefit from cortisone injection in the knee, but will defer to rheumatology. Chronic obstructive pulmonary disease 05/28/2020 Assessment & Plan (07/14/2024 6:33 PM EST): Stable,without evidence of exacerbation. Commended patient on her smoking cessation. Assessment & Plan (12/14/2023 1:09 PM EDT): Stable, although patient does have tightness and wheezing noted on exam. Continue Trelegy, Combivent as needed. Discussed that she will likely need a pulmonary clearance prior to her hip replacement. Orders for PFTs and referral to pulmonology placed. CT scan of chest planned for later this week. Assessment & Plan (08/17/2023 12:25 PM EST): Stable, although patient does have tightness and wheezing noted on exam. Recommend restarting Trelegy, with as needed Combivent. Flu vaccine given in office today. Reviewed s/s of COPD exacerbation. F/u in 6 months, or sooner as needed. Assessment & Plan (12/13/2020 12:43 PM EDT): Stable, without evidence of acute exacerbation in office today. Patient does report doing a little better with Breo once daily. Continue current regimen and follow- up in 6 months, or sooner as needed. Assessment & Plan (07/30/2020 7:27 PM EST): History of COPD and long history of tobacco abuse, with some worsening wheezing noted in office today. Will start Breo once daily. Patient instructed on medication use, side effects, and adverse effects; patient advised on importance of rinsing mouth after use. Will follow up in 3 months for reevaluation, or sooner as needed if symptoms worsening. Patient's influenza vaccine updated in office today and she is up-to-date on pneumococcal vaccines. Assessment & Plan (05/28/2020 7:40 PM EDT): Stable, without evidence of acute COPD exacerbation. Patient on no controller medications, but does not use Combivent frequently per her report. Follow-up for any new shortness of breath or increased cough productivity. History of multiple pulmonary nodules 05/28/2020 Assessment & Plan (05/28/2020 7:44 PM EDT): We will get old records from primary care and follow-up on pulmonary nodules as needed. Resolved Problems Problem Noted Date Diagnosed Date Resolved Date Low blood pressure reading 07/14/2024 0 10/04/2024 Assessment & Plan (07/22/2024 7:31 AM EST): Improved blood pressures reported, but would recommend continuing to hold amlodipine. If blood pressures start trending up we can always restart antihypertensive therapy. Will request that [facility] nursing draw lab orders at time of next visit. Patient verbalizes understanding and in agreement with plan. Assessment & Plan (07/14/2024 6:31 PM EST): Patient continues to have low blood pressure reading. Will have patient do blood work to reevaluate for worsening anemia and include iron counts. Patient instructed to hold her amlodipine and lisinopril for now. Patient's daughter in law is planning on getting a home blood pressure cuff to check BP at home; patient will also be getting regular BP checks with home health providers. F/u closely. Patient verbalizes understanding and in agreement with plan. Bilateral leg edema 12/14/2023 10/04/19 Assessment & Plan (12/14/2023 1:09 PM EDT): Patient noticing bilateral leg edema, which is somewhat new for her. No evidence of cellulitis, or acute CHF exacerbation. Will do blood work and a 3-day course of Lasix. Follow-up in office in 1-2 weeks for reevaluation. Patient verbalizes understanding and in agreement with plan. CKD (chronic kidney disease), stage III 05/28/2020 08/17/2023 Assessment & Plan (05/28/2020 7:44 PM EDT): Will monitor renal function, with repeat renal panel in 2 months prior to upcoming appointment. Pt advised on adequate fluid intake, low sodium and potassium intake, and avoiding renal toxic medications. Psychophysiologic insomnia 05/28/2020 1 10/18/2022 Assessment & Plan (05/28/2020 7:43 PM EDT): Ongoing continuity issues with recent loss of spouse. Discussed treatment options such as gabapentin which can help with sleep and chronic pain or trazodone for sleep. Patient declines at this time but will consider if sleep issues worsening. We will follow-up in 2 months, or sooner as needed. Encounters Date Type Department Care Team Description 08/05/2025 Refill [facility] at [address] [address] Riri Lucas PA-C Med Change Request 08/03/2025 Refill [facility] [address] [address] Breanna Zimmerman MA Medication Refill (/HYDROmorphone (DILAUDID) 8 MG tablet//) 08/02/2025 Refill [facility] [address] [address] Jess Richter, BRENNA Medication Refill (Levothyroxine) 08/01/2025 Refill [facility] [address] [address] Mary Jane Mcduffie, BRENNA Medication Refill (PREDNISONE 1 MG TABLET) 07/17/2025 3:00 PM EST Telemedicine - audio only [facility] at [address] [address] Riri Lucas PA-C Iron deficiency anemia, unspecified iron deficiency anemia type (Primary Dx); Low vitamin B12 level 07/17/2025 Telephone [facility]cology Clinic at [address] [address] Riri Lucas PA-C 07/17/2025 Orders Only [facility] Clinic at [address] [address] Riri Lucas, PA-C Low vitamin B12 level (Primary Dx); Anemia, unspecified type 07/09/2025 Orders Only [facility]cology Clinic at [address] [address] Teena Starr Anemia, unspecified type (Primary Dx) 07/03/2025 Refill [facility] [address] [address] [address] Son CMA Medication Refill 06/18/2025 Telephone [facility] Gastro[facility]ology Clinic [address] [place] [address] Hollie Jeffers CNP 06/15/2025 10:52 AM EDT - 06/15/2025 11:59 PM EDT Hospital Encounter [facility] [address] [address] Hollie Jeffers CNP Discharge Disposition: Home or Self Care 06/15/2025 Transcribe Orders [facility] [address] [address] Hollie Jeffers CNP Constipation, unspecified constipation type (Primary Dx); Other iron deficiency anemia; Other vitamin B12 deficiency anemia 06/14/2025 Telephone [facility] at [address] [address] Riri Lucas PA-C 06/14/2025 Refill [facility] H[facility] Oncology Clinic at [address] [address] Riri Lucas PA-C Medication Refill 06/13/2025 Telephone [facility] 14 [facility] [address] [place] [address] Jess Richter CNP Red Call SOB ; cancel appt 06/09/2025 Refill [facility] 14 [facility] [address] [place] [address] Leslye Bernstein APRN Medication Refill (Venlafaxine) 06/07/2025 Refill [facility] 14 [facility] [address] [place] [address] [address] [address] CMA Medication Refill (Hydromorphone) from Last 3 Months Immunizations Immunization Administration Dates Next Due COVID-19 (Pre-06/21) Pfizer Vaccine, mRNA, PF 11/04/2020,10/14/2020 Influenza High-Dose Quadriva lent Preservative Free IM 08/17/2023,07/30/2020 Influenza High-Dose Trivalen t Preservative Free IM 07/14/2024 Influenza Quadrivalent Adjuv anted Preservative Free IM 07/11/2021 Influenza Quadrivalent Preservative Free IM 03/31,05/18/2018,05/29/2014 Influenza Quadrivalent w/ Preservative IM 2016,06/15/2013,06/19/2011 Influenza, Unspecified Formulation 05/28/2016 Pneumococcal conjugate PCV13 07/05/2015 Pneumococcal polysaccharide PPSV23 09/13/2010 Tdap 02/13/2011 Zoster live 01/05/2012 Family History Medical History Relation Comments No Known Problems Daughter Cancer Father in bowels? Stroke Mother Thyroid disease Sister Relation Status Comments Brother Alive Daughter Alive Father (Age 78) Maternal Grandfather Maternal Grandmother Mother (Age 82) Paternal Grandfather Paternal Grandmother Sister Alive Son Alive Social History Tobacco Use Types Packs/Day Years Used Date Smoking Tobacco: Former Cigarettes 1 51 S tarted: 1977 Smokeless Tobacco: Never Tobacco Cessation:Counseling Given: Not Answered Alcohol Use Standard Drinks/Week Comments Not Currently [...] Orientation Straight 07/18/2024 2: 23 PM EST Last Filed Vital Signs Vital Sign Reading Time Taken Comments Blood Pressure 132/67 04/13/2025 3:31 PM EDT Pulse 57 04/13/2025 3:31 PM EDT Temperature 36.5 C (97.7 F) 04/13/2025 1:35 PM EDT Respiratory Rate 18 04/13/2025 3:31 PM EDT Oxygen Saturation 98% 04/13/2025 3:31 PM EDT Inhaled Oxygen Concentration - - Weight 63.5 kg (140 lb) 09/14/2024 9:25 AM EST Height 162.6 cm (5' 4 ) 09/14/2024 9:25 AM EST Body Mass Index 24.03 09/14/2024 9:25 AM EST Plan of Treatment Health Maintenance Due Date Last Done Comments OSTEOPOROSIS SCREENING INITIAL (ONE-TIME) 2008 ZOSTER VACCINES (2 of 3) 03/01/2012 01/05/2012 RSV VACCINE (1 - 1-dose 75+ series) 2018 DIABETIC EYE EXAM 05/28/2020 Adult Td,Tdap Booster 02/13/2021 02/13/2011 URINE MICROALBUMIN/CREATININE RATIO 07/08/2021 07/08/2020 DEPRESSION SCREENING 12/13/2024 12/14/2023, 12/14/19 24 INFLUENZA VACCINE (#1) 2025 , 08/17/2023, 07/11/2021, Additional history exists COVID-19 VACCINE ( season) 2025 09/29/2022, 03/07/2022, 07/11/2021, Additional history exists BLOOD PRESSURE 10/14/2025 04/13/2025 HEMOGLOBIN A1C 12/14/2025 06/15/2025, 11/0 11/2023, 06/21/2024, Additional history exists CREATININE LEVEL 06/15/2026 06/15/2025, 12/2024, 11/15/2024, Additional history exists TSH LEVEL 06/15/2026 06/15/2025, 05/31, 08/31/2023, Additional history exists PNEUMOCOCCAL VACCINES (50+ years) Completed 07/05/2015, 09/13/2010 HEPATITIS A VACCINES Aged Out No long er eligible based on patient's age to complete this topic HIB VACCINES Aged Out No longer eligi ble based on patient's age to complete this topic MENINGOCOCCAL VACCINES (ACWY) Aged Out No longer eligible based on patient's age to complete this topic MENINGOCOCCAL VACCINES (B) Aged Out N o longer eligible based on patient's age to complete this topic Medical Devices Not on file Procedures Procedure Name Priority Date/Time Associated Diagnosis Comments INTRINSIC FACTOR BLOCKING ANTIBODY Routine 07/10/2025 3:10 PM EST Vitamin B 12 deficiency PARIETAL CELL ANTIBODY Routine 3:10 PM EST Vitamin B 12 deficiency FERRITIN Routine 06/15/2025 11:01 AM EDT Anemia, unspecified type CBC AND DIFFERENTIAL Routine 06/15/2025 11:01 AM EDT Anemia, unspecified type HEMOGLOBIN A1C Routine 06/15/2025 11:01 AM EDT Type 2 diabetes mellitus with hyperglycemia, without long-term current use of insulin THYROID STIMULATING HORMONE (TSH) Routine 06/15/2025 11:01 AM EDT Hypothyroidism, unspecified type VITAMIN B12 Routine 06/15/2025 11:01 AM EDT Constipation, unspecified constipation type Other iron deficiency anemia Other vitamin B12 deficiency anemia IRON AND IRON BINDING CAPACITY Routine 06/15/2025 11:01 AM EDT Constipation, unspecified constipation type Other iron deficiency anemia Other vitamin B12 deficiency anemia IMMUNOGLOBULIN A Routine 06/15/2025 11:0 1 AM EDT Constipation, unspecified constipation type Other iron deficiency anemia Other vitamin B12 deficiency anemia C-REACTIVE PROTEIN (CRP) Routine 025 11:01 AM EDT Constipation, unspecified constipation type Other iron deficiency anemia Other vitamin B12 deficiency anemia COMPREHENSIVE METABOLIC PANEL (CMP) Routine 06/15/2025 11:01 AM EDT Constipation, unspecified constipation type Other iron deficiency anemia Other vitamin B12 deficiency anemia TISSUE TRANSGLUTAMINASE IGA Routine 06/15/2025 11:01 AM EDT Constipation, unspecified constipation type Other iron deficiency anemia Other vitamin B12 deficiency anemia MICROALBUMIN/CREATININE RATIO, RANDOM URINE Routine 07/08/2020 11:39 AM EST Laboratory examination ordered as part of a routine general medical examination Type 2 diabetes mellitus without complication, without long-term current use of insulin from Last 3 Months or Most Recently Relevant to Health Maintenance Results * Intrinsic Factor Blocking Antibody (07/10/2025 3:10 PM EST) Intrinsic Factor Blocking Ab, S Negative Negative 07/12/2025 3:52 PM EST [facility] Comment SEE COMMENTS 07/12/2025 3:52 PM EST [facility] Comment: Intrinsic Factor Blocking Antibody (IFBA) antibodies are absent in approximately 50% of individuals with pernicious anemia (PA). The absence of elevated IFBA antibodies does not rule out the presence of PA; further studies such as gastrin testing may be indicated. Blood (Blood) Venipuncture / Unknown 07/10/2025 3:10 PM EST 07/10/2025 4:06 PM EST us Hollie Jeffers COATER LAB BLOOD BKR ORDERABLES Final Result LOREE GRAY) [facility] [address] [place], [place] [address] [phone] * Parietal Cell Antibody (07/10/2025 3:10 PM EST) Parietal Cell Ab, IgG, S <10.0 <=20.0 (Negative) U 07/13/2025 8:30 PM EST [facility] Blood (Blood) Venipuncture / Unknown 07/10/2025 3:10 PM EST 07/10/2025 4:06 PM EST Hollie Jeffers [facility] LAB BLOOD BKR ORDERABLES Final Result Performing Organization Address City/State/[facility] Co de Phone Number [facility]PH (BEAKER) [facility] [address] [phone] * (ABNORMAL) Comprehensive metabolic panel (06/15/2025 11:01 AM EDT) SODIUM 137 133 - 146 mmol/L [facility] POTASSIUM 4.3 3.3 - 5.1 mmol/L [facility] CHLORIDE 102 96 - 108 mmol/L [facility] CO2 23 21 - 35 mmol/L [facility] BUN 20(H) 6 - 19 mg/dL [facility] CREATININE 0.80 0.5 - 1.5 mg/dL [facility] GLUCOSE 124(H) 70 - 99 mg/dL [facility] ALBUMIN 4.2 3.9 - 4.8 g/dL [facility] TOTAL PROTEIN 7.3 6.5 - 8.0 g/dL [facility] CALCIUM 9.8 8.4 - 10.3 mg/dL [facility] ALKALINE PHOSPHATASE 222(H) 39 - 117 U/L [facility] TOTAL BILIRUBIN 0.6 0.0 - 1.2 mg/dL [facility] AST 13 0 - 37 U/L [facility] ALT 9 0 - 40 U/L [facility] GLOBULIN 3.1 1 - 4.8 g/dL [facility] EGFR 74 >59 mL/min/1.7 3m2 [facility] Comment:Estimated glomerular filtration rate calculated using the CKD-EPI refit equation. ANION GAP 16 10 - 20 mmol/L [facility] Blood 06/15/2025 11:0 1 AM EDT 06/15/2025 11:14 AM EDT Hollie Jeffers [facility] LAB BLOOD BKR ORDERABLES Final Result [address] [address] * Iron and iron binding capacity (06/15/2025 11:01 AM EDT) [facility] IRON 40 30 - 160 ug/dL [facility] IRON BINDING CAPACITY 255 228 - 428 ug/dL [facility] TRANSFERRIN SATURAT. 16 15 - 50 % [facility] Blood 06/15/2025 11:0 1 AM EDT 06/15/2025 11:14 AM EDT Hollie Jeffers [facility] LAB BLOOD BKR ORDERABLES Final Result Performing Organization Address [facility] Co de Phone Number [address] [address] * Tissue transglutaminase IgA (06/15/2025 11:01 AM EDT) [facility] TTG IGA ANTIBODY 2.6 <4.0 (Negative) U/mL [facility] Blood 06/15/2025 11:0 1 AM EDT 06/15/2025 11:13 AM EDT Hollie Jeffers [facility] LAB BLOOD BKR ORDERABLES Final Result Performing Organization Address [facility] Co de Phone Number [facility] [address] [place] [address] * (ABNORMAL) CBC and differential (06/15/2025 11:01 AM EDT) [facility] WBC 4.91 4.00 - 11.00 K/uL [facility] RBC 3.56(L) 4.00 - 5.20 M/uL [facility] HGB 10.7(L) 12.0 - 16.0 g/dL [facility] HCT 34.7(L) 36.0 - 46.0 % [facility] PLT 325 150 - 450 K/uL [facility] MCV 97.5 80.0 - 100.0 [facility] MCH 30.1 27.0 - 31.0 pg [facility] MCHC 30.8(L) 32.0 - 36.0 g/dL [facility] RDW 13.6 11.5 - 14.5 % [facility] MPV 9.7 8.4 - 12.0 [facility] NRBC 0.00 0.00 /100 WBCs [facility] ABSOLUTE NRBC 0.00 0.00 K/uL [facility] DIFF METHOD Auto [facility] NEUTS 55.3 48.0 - 76.0 % [facility] LYMPHS 25.1 18.0 - 41.0 % [facility] MONOS 8.4 4.0 - 11.0 % [facility] EOS 9.0(H) 0.0 - 5.0 % [facility] BASOS 1.8(H) 0.0 - 1.5 % [facility] Granulocytes, immature (%) 0.4 0.0 - 0.9 % [facility] ABSOLUTE NEUTS 2.72 1.92 - 7.60 K/uL [facility] ABSOLUTE LYMPHS 1.23 0.72 - 4.10 K/uL [facility] ABSOLUTE MONOS 0.41 0.16 - 1.10 K/uL [facility] ABSOLUTE EOS 0.44 0.00 - 0.50 K/uL [facility] ABSOLUTE BASOS 0.09 0.00 - 0.15 K/uL [facility] Granulocytes, immature 0.02 0.00 - 0.09 K/uL [facility] Blood 06/15/2025 11:0 1 AM EDT 06/15/2025 11:14 AM EDT us Riri Lucas PA-C LAB BLOOD BKR ORDERABLES F inal Result [facility] [address] [place] [address] * (ABNORMAL) C-Reactive Protein (06/15/2025 11:01 AM EDT) C REACTIVE PROTEIN 23.0(H) 0.0 - 4.0 mg/L [facility] Blood 06/15/2025 11:0 1 AM EDT 06/15/2025 11:14 AM EDT Hollie Jeffers [facility] LAB BLOOD BKR ORDERABLES Final Result Performing Organization Address [facility]/ZIP Co de Phone Number [address] [address] * TSH (06/15/2025 11:01 AM EDT) TSH 2.52 0.27 - 4.20 uIU/mL [facility] Blood 06/15/2025 11:0 1 AM EDT 06/15/2025 11:14 AM EDT Jess Richter COATER LAB BLOOD BKR ORDERABL ES Final Result Performing Organization Address [facility] Co de Phone Number [address] [address] * Hemoglobin A1c (06/15/2025 11:01 AM EDT) HEMOGLOBIN A1C 5.7 4.3 - 5.8 % [facility] Blood 06/15/2025 11:0 1 AM EDT 06/15/2025 11:14 AM EDT Jess Richter COATER LAB BLOOD BKR ORDERABL ES Final Result Performing Organization Address [facility] Co de Phone Number [address] [address] * (ABNORMAL) Immunoglobulin A (06/15/2025 11:01 AM EDT) IgA 432(H) 70 - 400 mg/dL [facility] Blood 06/15/2025 11:0 1 AM EDT 06/15/2025 11:14 AM EDT Hollie Jeffers [facility] LAB BLOOD BKR ORDERABLES Final Result Performing Organization Address [facility]/ZIP Co de Phone Number [address] [address] * (ABNORMAL) Ferritin (06/15/2025 11:01 AM EDT) FERRITIN 155(H) 13 - 150 ug/L [facility] Blood 06/15/2025 11:0 1 AM EDT 06/15/2025 11:14 AM EDT Riri Lucas PA-C LAB BLOOD BKR ORDERABLES F inal Result Performing Organization Address [facility] Co de Phone Number [address] [address] * (ABNORMAL) Vitamin B12 (06/15/2025 11:01 AM EDT) VITAMIN B12 207(L) 232 - 1,245 pg/mL [facility] Blood 06/15/2025 11:0 1 AM EDT 06/15/2025 11:14 AM EDT Hollie Jeffers [facility] LAB BLOOD BKR ORDERABLES Final Result Performing Organization Address [facility] Co de Phone Number [address] [address] * Microalbumin/creatinine ratio, random urine (07/08/2020 11:39 AM EST) URINE MICROALBUMIN <1.2 0 - 2.3 mg/dL [facility] URINE CREATININE 138 mg/dL [facility] MICROALB/CRE RATIO NOT CALCULATED 0 - 20 mg/g Cre [facility] Comment:due to Microalbumin <1.2 Urine (Urine) 07/08/2020 11: 39 AM EST 07/08/2020 11:48 AM EST Jess Richter COATER LAB URINE ORDERABLES F inal Result Performing Organization Address City/[facility]/ZIP Co de Phone Number [facility] [address] [place] [address] from Last 3 Months or Most Recently Relevant to Health Maintenance Insurance [employer] P[employer] MEDICARE REPLACEMENT MEDICARE PART A & B [employer] O MEDICARE REPLACEMENT MED[facility] PART A & B [employer] O MEDICARE REPLACEMENT MEDICARE PART A & B [employer] MEDICARE REPLACEMENT MEDICARE PART A & B [facility] RE[facility]IC[facility] PART A & B [facility] MEDICARE REPLACEMENT MEDICARE PART A & B [employer] O MEDICARE REPLACEMENT MEDICARE PART A & B Care Teams Mounter Hand Relationship Specialty Start Date End Date Jess Richter CNP 14 [facility] [address] [place] [address] PCP - General Internal Medicine 04/24/20 Riri Lucas PA-C [address] [place] [address] Physician Construction Assistant 10/17/24 Additional Source Comments The information contained in this document represents components of the legal health record. It is not the complete legal health record.[facility]
--- OUTSIDE RECORDS SUMMARY | 2025-08-21 15:22 | XMS_ITS | Encounter Summary ---
Author Organization [facility] Address [address] [place] [address] [place] [address] Phone Care Team Providers Care Professional Driver Name Role Phone Jess Richter BRENNA Primary Care Provider Riri Lucas PA-C Unavailable [phone] Encounter Details Date Type Department Care Team (Late st Contact Info) Description 08/17/2023 Procedure Pass [facility], Ct [facility] [address] [place] [address] Social History Tobacco Use Types Packs/Day Years [...] documented as of this encounter Care Teams Professional Driver Relationship Specialty Start Date End Date Jess Richter CNP [address] [place] [address] [place] [address] PCP - General Internal Medicine 04/24/20 Riri Lucas PA-C [address] [place] [address] Physician Planer Operator / Grader 10/17/24 documented as of this encounter Additional Source Comments The information contained in this document represents components of the legal health record. It is not the complete legal health record.[facility]
--- OUTSIDE RECORDS SUMMARY | 2025-08-21 15:22 | XMS_ITS | Encounter Summary ---
Author Organization [facility] Address [address] [place] [address] Phone Care Team Providers Care Shot Core Drill Operator Helper Name Role Phone Jess Richter BRENNA Primary Care Provider Riri Lucas PA-C Unavailable [phone] Encounter Details Date Type Department Care Team (Late st Contact Info) Description 10/17/2024 Ancillary Orders [address] [address] Ermelinda Rinaldi MD [address] [place] [address] [facility], [place], [place] [id number] [email or web address] Bilateral hip pain (Primary Dx) Social History Tobacco Use Types Packs/Day Years [...] FL Guidance Needle Placement Non-Spine Imaging Routine Bilateral hip pain 10/24/2024 10:33 AM EST Scheduled Orders Name Type Priority Associated Diagnoses Orde r Schedule FL Guidance Needle Placement Non-Spine Imaging Routine Bilateral hip pain 1 Occurrences starting 10/17/2024 until 01/14/2025 documented as of this encounter Visit Diagnoses Diagnosis Bilateral hip pain- Primary Pain in joint, pelvic region and thigh documented in this encounter Additional Health Concerns Assessment Noted Time PHQ-9 Depression Total Score: 4 12/14/19 24 11:34 AM EDT PHQ-2 Depression Total Score: 0 12/14/19 24 11:34 AM EDT documented as of this encounter Care Teams Shot Core Drill Operator Helper Relationship Specialty Start Date End Date Jess Richter CNP 14 [facility] [address] [place] [address] [email or web address] PCP - General Internal Medicine 04/24/20 Riri Lucas PA-C [address] [place] [address] [email or web address] Physician Melter Caster 10/17/24 documented as of this encounter Additional Source Comments The information contained in this document represents components of the legal health record. It is not the complete legal health record.[facility]
--- OUTSIDE RECORDS SUMMARY | 2025-08-21 15:22 | XMS_ITS | Encounter Summary ---
Author Organization [facility] Address [facility] [employer] [facility] [address] [place] [address] Phone Care Team Providers Care Welt Insole Channeler Name Role Phone Jess Richter BRENNA Primary Care Provider Riri Lucas PA-C Unavailable [phone] Encounter Details Date Type Department Care Team (Late st Contact Info) Description 03/24/2022 Procedure Pass [facility], Ct Scan - [facility] [address] [place] [address] Social History Tobacco Use Types Packs/Day Years Used Date Smoking Tobacco: Every Day Cigarettes 1 51 Started: 1976 Smokeless Tobacco: Never Alcohol Use Standard Drinks/Week Comments Not Currently 0 (1 standard drink = 0.6 oz pur e alcohol) Comments Unknown Sex and Gender Information Value [...] on filedocumented in this encounter Care Teams Welt Insole Channeler Relationship Specialty Start Date End Date Jess Richter CNP 14 [facility] [address] [place] [address] [email or web address] PCP - General Internal Medicine 04/24/20 Riri Lucsa PA-C [address] [place] [address] Physician Weatherization Coordinator 10/17/24 documented as of this encounter Additional Source Comments The information contained in this document represents components of the legal health record. It is not the complete legal health record.[facility]
--- OUTSIDE RECORDS SUMMARY | 2025-08-21 15:22 | XMS_ITS | Encounter Summary ---
Author Organization [facility] Address [address] [place] [address] Phone Care Team Providers Care Cardiology Technologist Name Role Phone Jess Richter BRENNA Primary Care Provider Riri Lucas PA-C Unavailable [phone] Encounter Details Date Type Department Care Team (Late st Contact Info) Description 06/08/2023 Ancillary Orders [address] [address] Ermelinda Rinaldi MD [address] [place] [address] Orthopedics & Sports Medicine, [place], [place] [phone] [email or web address] Hip pain, chronic, right Social [...] Placement Non-Spine Imaging Routine Hip pain, chronic, right 06/08/2023 9:57 AM EDT Scheduled Orders Name Type Priority Associated Diagnoses Orde r Schedule FL Guidance Needle Placement Non-Spine Imaging Routine Hip pain, chronic, right 1 Occurrences starting 06/08/2023 until 09/08/2023 documented as of this encounter Visit Diagnoses Diagnosis Hip pain, chronic, right documented in this encounter Care Teams Cardiology Technologist Relationship Specialty Start Date End Date Jess Richter CNP [address] [place] [address] [place] [address] PCP - General Internal Medicine 04/24/20 Riri Lucas PA-C [address] [place] [address] Physician Automobile Spring Repairer 10/17/24 documented as of this encounter Additional Source Comments The information contained in this document represents components of the legal health record. It is not the complete legal health record.[facility]
--- OUTSIDE RECORDS SUMMARY | 2025-08-21 15:22 | XMS_ITS | Encounter Summary ---
Author Organization [facility] Address [address] [place] [address] Phone Care Team Providers Care Apparatus Repair Mechanic Name Role Phone Jess Richter CNP Primary Care Provider Riri Lucas PA-C Unavailable [phone] Reason for Visit * Reason Comments Medication Refill Levothyroxine Encounter Details Date Type Department Care Team (Late st Contact Info) Description 08/02/2025 Refill [facility] [address] [place], [place] [phone] Jess Richter CNP 14 [facility] [address] [place] [address] [email or web address] Medication Refill (Levothyroxine) Social History Tobacco Use Types Packs/Day Years Used Date Smoking Tobacco: Former Cigarettes 1 [address] S tarted: 1974 Smokeless Tobacco: Never Alcohol Use Standard [...] PM EST documented as of this encounter Progress Notes * Court Son CMA - 08/02/2025 9:00 AM EST Rx Care Gap Status - Instructions for Clinical Staff (prescriber discretion applies): > Mismatch review guide > No future appt: Please schedule if appropriate. Visit Info Last visit: 12/12/2024 Jess Richter CNP - Internal Medicine [facility] > Requested f/u: Return in about 3 months (around 03/13/2025) for Recheck. Upcoming visit: None ACTIONS TAKEN BY Court Son CMA - Criteria met. Thyroid Medication Rx Protocol - levothyroxine sodium Criteria met; renew for up to 12 months. Visit in the past 14 months: Yes Clinical criteria: - TSH within past year: Yes - Last TSH was normal: Yes Lab Results Component Value Date TSH 2.52 06/15/2025 documented in this encounter Plan of Treatment Not on file documented as of this encounter Visit Diagnoses Diagnosis Hypothyroidism Unspecified hypothyroidism documented in this encounter Additional Health Concerns Assessment Noted Time PHQ-9 Depression Total Score: 4 12/14/19 11:34 AM EDT PHQ-2 Depression Total Score: 0 12/14/19 11:34 AM EDT documented as of this encounter Care Teams Apparatus Repair Mechanic Relationship Specialty Start Date End Date Jess Richter CNP [address] [place] [address] [address] [place] [address] PCP - General Internal Medicine 04/24/20 Riri Lucas PA-C [address] [place] [address] Physician Aerodynamics Teacher 10/17/24 documented as of this encounter Additional Source Comments The information contained in this document represents components of the legal health record. It is not the complete legal health record.[facility]
--- OUTSIDE RECORDS SUMMARY | 2025-08-21 15:22 | XMS_ITS | Encounter Summary ---
Author Organization [facility] Address [address] [place] [address] [place] [address] Phone Care Team Providers Care Plant Care Worker Name Role Phone Jess Richter BRENNA Primary Care Provider Riri Lucas PA-C Unavailable [phone] Encounter Details Date Type Department Care Team (Late st Contact Info) Description 06/08/2023 Ancillary Orders [facility] [address] [place] [address] Ermelinda Rinaldi MD [address] [place] [address] Orth[facility], [place], [place] [phone] [email or web address] Social History Tobacco Use Types Packs/Day Years [...] on filedocumented in this encounter Care Teams Plant Care Worker Relationship Specialty Start Date End Date Jess Richter CNP [address] [place] [address] [email or web address] PCP - General Internal Medicine 04/24/20 Riri Lucas PA-C [address] [place] [address] Physician Mixing Pan Tender 10/17/24 documented as of this encounter Additional Source Comments The information contained in this document represents components of the legal health record. It is not the complete legal health record.[facility]
--- OUTSIDE RECORDS SUMMARY | 2025-08-21 15:22 | XMS_ITS | Encounter Summary ---
Author Organization [facility] Address [address] [place] [address] Phone Care Team Providers Care Fretted Instrument Repairer Name Role Phone Jess Richter BRENNA Primary Care Provider Riri Lucas PA-C Unavailable [phone] Encounter Details Date Type Department Care Team (Late st Contact Info) Description 01/04/2023 Ancillary Orders [address] [address] Ermelinda Rinaldi MD [address] [place] [address] Orth[facility]ics [facility] Medicine, [place], [place] [phone] [email or web address] Arthralgia of right hip Social History Tobacco Use Types Packs/Day Years [...] FL Guidance Needle Placement Non-Spine Imaging Routine Arthralgia of right hip 01/05/2023 8:36 AM EDT Scheduled Orders Name Type Priority Associated Diagnoses Orde r Schedule FL Guidance Needle Placement Non-Spine Imaging Routine Arthralgia of right hip 1 Occurrences starting 01/04/2023 until 04/06/2023 documented as of this encounter Visit Diagnoses Diagnosis Arthralgia of right hip documented in this encounter Care Teams Fretted Instrument Repairer Relationship Specialty Start Date End Date Jess Richter CNP 14 [facility] [address] [place] [phone] PCP - General Internal Medicine 04/24/20 Riri Lucas PA-C [address] [place] [address] Physician Delicatessen Slicer 10/17/24 documented as of this encounter Additional Source Comments The information contained in this document represents components of the legal health record. It is not the complete legal health record.[facility]
[2025-08-21 16:25] LABS: Troponin-I High Sensitivity 18.1 ng/L (<3.5-17.0)
[2025-08-21 16:52] VITALS: BP 137/72; PULSE 73; RESP 20; TEMP 36.1; O2SAT 94
== END 2025-08-21 16:52 | disposition home or self-care (01) ==
PROVIDERS: Emergency Provider Emergency Medicine
DX: I50.9 Heart failure, unspecified (principal); R06.00 Dyspnea, unspecified; Z03.818 Encounter for observation for suspected exposure to other biological agents ruled out; R06.02 Shortness of breath; R00.2 Palpitations; R05.9 Cough, unspecified; R07.9 Chest pain, unspecified; I45.10 Unspecified right bundle-branch block; I51.7 Cardiomegaly
CPT/HCPCS: 36415; 71046; 80053; 83880; 84484; 85025; 87637; 93005; 99283; 99284

== ENCOUNTER → 2025-08-21 13:10 | Outpatient (BNV) | payer MEDICARE, SELFPAY | PROVIDERS: Emergency Provider Emergency Medicine; Visit Provider Internal Medicine Cardiovascular Disease | DX: I45.10 Unspecified right bundle-branch block (principal); I49.9 Cardiac arrhythmia, unspecified | CPT/HCPCS: 93010 ==

== ENCOUNTER → 2025-08-21 13:23 | Outpatient (BNV) | payer MEDICARE, SELFPAY | PROVIDERS: Emergency Provider Emergency Medicine; Visit Provider Radiology Diagnostic Radiology | DX: I51.7 Cardiomegaly (principal) | CPT/HCPCS: 71046 ==